=== PATIENT | female | born 1970 | race African-American/Black ===

== ENCOUNTER 2016-11-15 00:43 | Emergency (ER) | payer SELFPAY ==
[~2016-11-15] VITALS: Ht 165.1 cm; Wt 50.0 kg
[2016-11-15 01:32] VITALS: BP 114/81; PULSE 76; RESP 18; TEMP 98; O2SAT 99
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
[2016-11-15] MEDS ORDERED: DICL50TA3 PO (02:49)
[2016-11-15] MEDS ORDERED: IBUPROFEN 600 MG TAB PO ONE (03:00)
== END 2016-11-15 03:02 | disposition home or self-care (01) ==
LOC: NEPB 00:43
DX: S43.401A Unspecified sprain of right shoulder joint, initial encounter (principal); S40.011A Contusion of right shoulder, initial encounter; R06.02 Shortness of breath; Z87.09 Personal history of other diseases of the respiratory system; Y04.2XXA Assault by strike against or bumped into by another person, initial encounter
CPT/HCPCS: 71010; 73030; 99284

== ENCOUNTER 2018-12-08 12:15 | Observation (INO) ==
[2018-12-08] MEDS ORDERED: Ketorolac Inj 30 MG/ML (IVP) Vial IV.PUSH ONE (13:53)
--- NOTE | 2018-12-08 14:02 | ED ---
HPI General Chief complaint: Urogenital-Female Stated complaint: abd complaint Time Seen by Provider: 12/08/18 13:43 Source: patient Mode of arrival: ambulatory Limitations: no limitations History of Present Illness HPI narrative: 48yo F with no significant PMH presents to the ED with c/o abdominal pain since 12/03/18. Said she has lower abdominal pain and increased urinary frequency. Said she was in [facility] so she did not seek any medical attention. Denies any fever, chest pain, sob, n/v, back pain, focal weakness or numbness. Said she cant lift her right leg up by itself because it causes pain in her right lower abdomen. Related Data Previous Rx's Medication Instructions Recorded ferrous sulfate 325 mg PO DAILY #30 tab 12/09/18 Allergies Allergy/AdvReac Type Severity Reaction Status Date / Time No Known Allergies Allergy Verified 12/08/18 12:54 Review of Systems ROS: all other systems reviewed are negative [facility] Medical History Medical History Patient denies medical problems (Acute) Surgical History Surgical History No history of previous surgery (Acute) Family History Family History Father Colon cancer Mother Asthma Social History Social History Substance History: Active Abuse Second Hand Smoke Exposure: No Smoking Status: Never smoker How Often Do You Have a Drink Containing Alcohol: Never Hx Recent Travel: No Recent Travel in [place] within the Last 8 Weeks: No Recent Out of Country Travel within the Last 8 Weeks: No Substance Abuse Detail Crack/Cocaine: Substance Use Status: Active Immunization History Tetanus Immunization: Unsure Exam Narrative Exam Narrative: GENERAL: 48yo F who is cachetic appearing in mild distress. SKIN: Focused skin assessment warm/dry. HEAD: Atraumatic. Normocephalic. EYES: Pupils equal and round. No scleral icterus. No injection or drainage. ENT: No nasal bleeding or discharge. Mucous membranes pink and moist. NECK: Trachea midline. No JVD. CARDIOVASCULAR: Regular rate and rhythm. No murmur appreciated. RESPIRATORY: No accessory muscle use. Clear to auscultation. Breath sounds equal bilaterally. GASTROINTESTINAL: Abdomen softly distended, +TTP LUQ, LLQ. No TTP RLQ but when I lift right leg, right lower quadrant is tender. BACK: No midline ttp thoracic or lumbar spine. MUSCULOSKELETAL: No obvious deformities. No clubbing. No cyanosis. No edema. NEUROLOGICAL: Awake and alert. No obvious cranial nerve deficits. Pt will not lift right leg because of pain in abdomen. Able to move down bilaterally, sensation equal bilaterally. Normal speech. PSYCHIATRIC: Appropriate mood and affect; insight and judgment normal. Course Initial Documented Vital Signs Temperature 98.1 F 12/08/18 12:18 Pulse Rate 88 12/08/18 12:18 Respiratory Rate 18 12/08/18 12:18 Blood Pressure 105/68 12/08/18 12:18 Pulse Oximetry 100 12/08/18 12:18 Last Documented Vital Signs Temperature 98.5 F 12/09/18 11:46 Pulse Rate 66 12/09/18 11:46 Respiratory Rate 16 12/09/18 11:46 Blood Pressure 100/64 12/09/18 11:46 Pulse Oximetry 100 12/09/18 11:46 Medical Decision Making MDM Narrative Medical decision making narrative: 48yo F here with abdominal pain since she was in [facility]. Unable to lift right leg without her arms because it causes pain in right lower abdomen. Denies any focal weakness or numbness or back pain. Will check labs, UA, CT a/p+ and give toradol. Seen at [facility], my PA will review labs, UA, and CT and reevaluate. CBC shows hemoglobin 6.9, hematocrit 23.3. CMP shows no acute abnormality. Lipase is 124. UA is negative. Urine test is negative. CT abdomen/ pelvis shows Multiple masses arising the pelvisI suspect are all large leiomyoma from the uterus. I do not see a normal or abnormal ovary. The rest of the study is unremarkable. Patient reports history of edema, states she has never had a blood transfusion before. She does report heavy vaginal bleeding, states she has not had any since November 27. Rectal exam shows Hemoccult is negative. Type and screen is ordered. Patient will be transfused with 2 units PRBCs. Patient will be admitted for anemia, she agrees to this. Medical Screen Exam Complete: Yes Emergency Medical Condition: Yes Differential Diagnosis Differential Diagnosis: Appendicitis vs. abdominal mass vs. malignancy vs. UTI Lab Data Result diagrams: 12/09/18 06:53 12/08/18 14:30 POC Results POC Urine Results Negative Lab Results 12/08/18 12/08/18 12/08/18 Range/Units 14:25 14:30 15:54 WBC 3.4 L (4.0-11.0) th/mm3 RBC 3.53 L (4.00-5.30) mil/mm3 Hgb 6.9 L* (11.6-15.3) gm/dL Hct 23.3 L (35.0-46.0) % MCV 65.9 L (80.0-100.0) fL MCH 19.5 L (27.0-34.0) pg MCHC 29.5 L (32.0-36.0) % RDW 22.7 H (11.6-17.2) % Plt Count 361 (150-450) th/mm3 MPV 7.6 (7.0-11.0) fL Prelim Diff (Auto) Manual diff required Neut % (Auto) (16.0-70.0) % Lymph % (Auto) (9.0-44.0) % [place] % (Auto) (0.0-8.0) % Eos % (Auto) (0.0-4.0) % Baso % (Auto) (0.0-2.0) % Neut # (Auto) (1.8-7.7) th/mm3 Lymph # (Auto) (1.0-4.8) th/mm3 [place] # (Auto) (0.0-0.9) th/mm3 Eos # (Auto) (0.0-0.4) th/mm3 Baso # (Auto) (0.0-0.2) th/mm3 WBC Differential Manual diff final Diff Scan Seg Neuts % (Manual) 64 (16-70) % Lymphocytes % (Manual) 21 (9-44) % Monocytes % (Manual) 13 H (0-8) % Eosinophils % (Manual) 2 (0-4) % Abs Neuts (Manual) 2.2 (1.8-7.7) th/mm3 Differential Comment . Toxic Vacuolation Present H (None) Platelet Estimate Normal (Normal) Platelet Morphology Enlarged H (Normal) Target Cells 1+ H (None) Tear Drop Cells 1+ H (None) Ovalocytes 1+ H (None) Helmet Cells 1+ H (None) Keratocytes 1+ H (None) Sodium 140 (136-145) meq/L Potassium 4.0 (3.5-5.1) meq/L Chloride 111 H (98-107) meq/L Carbon Dioxide 22.8 (21.0-32.0) meq/L Anion Gap 6 (5-15) meq/L BUN 22 H (7-18) mg/dL Creatinine 0.82 (0.50-1.00) mg/dL Estimated GFR 89 (>89) mL/min Random Glucose 81 (74-106) mg/dL Calcium 9.1 (8.5-10.1) mg/dL Iron (50-170) mcg/dL TIBC (250-450) mcg/dL % Saturation (20-50) % Ferritin (8-252) ng/mL Total Bilirubin 0.4 (0.2-1.0) mg/dL AST 30 (15-37) U/L ALT 23 (10-53) U/L Alkaline Phosphatase 79 (45-117) U/L Total Protein 8.4 H (6.4-8.2) g/dL Albumin 4.1 (3.4-5.0) g/dL Lipase 124 (73-393) U/L Urine Color Yellow (Yellw/Straw) Urine Clarity Hazy H (Clear) Urine pH 5.0 (5.0-8.5) Ur Specific [place] 1.024 (1.002-1.035) Urine Protein Negative (Neg-Trace) mg/dL Urine Glucose (UA) Negative (Negative) mg/dL Urine Ketones Negative (Negative) mg/dL Urine Occult Blood Negative (Negative) Urine Nitrate Negative (Negative) Urine Bilirubin Negative (Negative) Urine Urobilinogen Less than 2 (Less than 2) mg/dL Ur Leukocyte Esterase Negative (Negative) Urine RBC Less than 1 (0-3) /hpf Urine WBC 1 (0-5) /hpf Ur Squamous Epith Cells 5 (0-5) /hpf Urine Mucus Few H (Occasional) /lpf Micro UA Comment Culture not ind Ur Microscopic Review Not Reportable Urine Culture Comments Culture not ind Chlam trachomat DNA PCR (Not Detect) N.gonorrhoeae DNA (PCR) (Not Detect) Blood Type Blood Type Recheck Antibody Screen MTS Gel Crossmatch Bld Prod Order Comment 12/08/18 12/08/18 12/09/18 Range/Units 16:54 23:30 06:53 WBC 4.7 (4.0-11.0) th/mm3 RBC 4.26 (4.00-5.30) mil/mm3 Hgb 9.3 L D (11.6-15.3) gm/dL Hct 30.4 L (35.0-46.0) % MCV 71.4 L D (80.0-100.0) fL MCH 21.8 L (27.0-34.0) pg MCHC 30.5 L (32.0-36.0) % RDW 24.8 H (11.6-17.2) % Plt Count 351 (150-450) th/mm3 MPV 8.7 (7.0-11.0) fL Prelim Diff (Auto) Slide review pending Neut % (Auto) 73.9 H (16.0-70.0) % Lymph % (Auto) 9.7 (9.0-44.0) % [place] % (Auto) 14.0 H (0.0-8.0) % Eos % (Auto) 1.1 (0.0-4.0) % Baso % (Auto) 1.3 (0.0-2.0) % Neut # (Auto) 3.5 (1.8-7.7) th/mm3 Lymph # (Auto) 0.5 L (1.0-4.8) th/mm3 [place] # (Auto) 0.7 (0.0-0.9) th/mm3 Eos # (Auto) 0.1 (0.0-0.4) th/mm3 Baso # (Auto) 0.1 (0.0-0.2) th/mm3 WBC Differential . Diff Scan Auto diff confirmed Seg Neuts % (Manual) (16-70) % Lymphocytes % (Manual) (9-44) % Monocytes % (Manual) (0-8) % Eosinophils % (Manual) (0-4) % Abs Neuts (Manual) (1.8-7.7) th/mm3 Differential Comment . Toxic Vacuolation (None) Platelet Estimate (Normal) Platelet Morphology (Normal) Target Cells (None) Tear Drop Cells (None) Ovalocytes 1+ H (None) Helmet Cells (None) Keratocytes (None) Sodium (136-145) meq/L Potassium (3.5-5.1) meq/L Chloride (98-107) meq/L Carbon Dioxide (21.0-32.0) meq/L Anion Gap (5-15) meq/L BUN (7-18) mg/dL Creatinine (0.50-1.00) mg/dL Estimated GFR (>89) mL/min Random Glucose (74-106) mg/dL Calcium (8.5-10.1) mg/dL Iron (50-170) mcg/dL TIBC (250-450) mcg/dL % Saturation (20-50) % Ferritin (8-252) ng/mL Total Bilirubin (0.2-1.0) mg/dL AST (15-37) U/L ALT (10-53) U/L Alkaline Phosphatase (45-117) U/L Total Protein (6.4-8.2) g/dL Albumin (3.4-5.0) g/dL Lipase (73-393) U/L Urine Color (Yellw/Straw) Urine Clarity (Clear) Urine pH (5.0-8.5) Ur Specific [place] (1.002-1.035) Urine Protein (Neg-Trace) mg/dL Urine Glucose (UA) (Negative) mg/dL Urine Ketones (Negative) mg/dL Urine Occult Blood (Negative) Urine Nitrate (Negative) Urine Bilirubin (Negative) Urine Urobilinogen (Less than 2) mg/dL Ur Leukocyte Esterase (Negative) Urine RBC (0-3) /hpf Urine WBC (0-5) /hpf Ur Squamous Epith Cells (0-5) /hpf Urine Mucus (Occasional) /lpf Micro UA Comment Ur Microscopic Review Urine Culture Comments Chlam trachomat DNA PCR Not detected (Not Detect) N.gonorrhoeae DNA (PCR) Not detected (Not Detect) Blood Type O Positive Blood Type Recheck Required Antibody Screen Negative MTS Gel Crossmatch See Detail Bld Prod Order Comment 12/09/18 Range/Units 06:53 WBC (4.0-11.0) th/mm3 RBC (4.00-5.30) mil/mm3 Hgb (11.6-15.3) gm/dL Hct (35.0-46.0) % MCV (80.0-100.0) fL MCH (27.0-34.0) pg MCHC (32.0-36.0) % RDW (11.6-17.2) % Plt Count (150-450) th/mm3 MPV (7.0-11.0) fL Prelim Diff (Auto) Neut % (Auto) (16.0-70.0) % Lymph % (Auto) (9.0-44.0) % [place] % (Auto) (0.0-8.0) % Eos % (Auto) (0.0-4.0) % Baso % (Auto) (0.0-2.0) % Neut # (Auto) (1.8-7.7) th/mm3 Lymph # (Auto) (1.0-4.8) th/mm3 [place] # (Auto) (0.0-0.9) th/mm3 Eos # (Auto) (0.0-0.4) th/mm3 Baso # (Auto) (0.0-0.2) th/mm3 WBC Differential Diff Scan Seg Neuts % (Manual) (16-70) % Lymphocytes % (Manual) (9-44) % Monocytes % (Manual) (0-8) % Eosinophils % (Manual) (0-4) % Abs Neuts (Manual) (1.8-7.7) th/mm3 Differential Comment Toxic Vacuolation (None) Platelet Estimate (Normal) Platelet Morphology (Normal) Target Cells (None) Tear Drop Cells (None) Ovalocytes (None) Helmet Cells (None) Keratocytes (None) Sodium (136-145) meq/L Potassium (3.5-5.1) meq/L Chloride (98-107) meq/L Carbon Dioxide (21.0-32.0) meq/L Anion Gap (5-15) meq/L BUN (7-18) mg/dL Creatinine (0.50-1.00) mg/dL Estimated GFR (>89) mL/min Random Glucose (74-106) mg/dL Calcium (8.5-10.1) mg/dL Iron 144 (50-170) mcg/dL TIBC 504 H (250-450) mcg/dL % Saturation 28.6 (20-50) % Ferritin 5 L (8-252) ng/mL Total Bilirubin (0.2-1.0) mg/dL AST (15-37) U/L ALT (10-53) U/L Alkaline Phosphatase (45-117) U/L Total Protein (6.4-8.2) g/dL Albumin (3.4-5.0) g/dL Lipase (73-393) U/L Urine Color (Yellw/Straw) Urine Clarity (Clear) Urine pH (5.0-8.5) Ur Specific [place] (1.002-1.035) Urine Protein (Neg-Trace) mg/dL Urine Glucose (UA) (Negative) mg/dL Urine Ketones (Negative) mg/dL Urine Occult Blood (Negative) Urine Nitrate (Negative) Urine Bilirubin (Negative) Urine Urobilinogen (Less than 2) mg/dL Ur Leukocyte Esterase (Negative) Urine RBC (0-3) /hpf Urine WBC (0-5) /hpf Ur Squamous Epith Cells (0-5) /hpf Urine Mucus (Occasional) /lpf Micro UA Comment Ur Microscopic Review Urine Culture Comments Chlam trachomat DNA PCR (Not Detect) N.gonorrhoeae DNA (PCR) (Not Detect) Blood Type Blood Type Recheck Antibody Screen MTS Gel Crossmatch Bld Prod Order Comment Imaging Data Radiologist's impression: Abdomen/Pelvis CT 12/08/18 13:51 CONCLUSION: 1. Multiple masses arising the pelvis I suspect are all large leiomyoma from the uterus. I do not see a normal or abnormal ovary. The rest of the study is unremarkable Pelvis Ultrasound 12/09/18 00:00 CONCLUSION: 1. Enlarged heterogeneous uterus containing multiple leiomyomas. 2. Pelvic pain. Correspond with endometrial leiomyoma measuring 3.2 x 1.7 x 1.5 cm. 3. Small moderate pelvic free fluid. Discharge Plan Discharge Disposition Patient Disposition: ED Admit(ED Internal Use Only) Discharge Condition Condition: Stable Discharge Order Discharge Orders: Discharge Order (Routine); Ordered 12/09/18 Ordered By: Ashley Frey ED Use Only Admit Order (Routine); Ordered 12/08/18 Ordered By: Jacque Higuera Discharge Details Anticipated Discharge Date: 12/09/18 Diagnosis: Anemia, Uterine leiomyoma Physicians Team ED Provider: Luz Cross ED Midlevel Provider: Jacque Higuera Primary Care Provider: Primary Care Kale,Lisa Attending Provider: Jono Feldman Other Providers: Leyda Dumont Status ED Status: Left Department Discharge Information Discharge Date/Time: 12/08/18 21:19
[2018-12-08 14:51] LABS: Bilirubin,Urine Negative (Negative); Clarity,Urine Hazy (Clear); Color,Urine Yellow (Yellw/Straw); Glucose,Urine (UA) Negative (Negative); Leukocyte Esterase,Urine Negative (Negative); Mucus,Urine Few /lpf (Occasional); Nitrite,Urine Negative (Negative); Specific Gravity,Urine 1.024 (1.002-1.035); Squamous Epithelial Cell,Urine 5 /hpf (0-5)
[2018-12-08 15:15] LABS: Alanine Aminotransferase 23 U/L (10-53); Albumin 4.1 g/dL (3.4-5.0); Anion Gap 6 meq/L (5-15); Aspartate Aminotransferase 30 U/L (15-37); Blood Urea Nitrogen 22 mg/dL (7-18); Calcium 9.1 mg/dL (8.5-10.1); Carbon Dioxide 22.8 meq/L (21.0-32.0); Chloride 111 meq/L (98-107); Glomerular Filtration Rate 89 mL/min (>89); Glucose,Random 81 mg/dL (74-106); Lipase 124 U/L (73-393); Sodium 140 meq/L (136-145)
[2018-12-08 15:17] LABS: Alkaline Phosphatase 79 U/L (45-117); Total Protein 8.4 g/dL (6.4-8.2)
--- NOTE | 2018-12-08 15:54 | CT ---
EXAM DATE: 12/08/2018 3:45 PM EST AGE/SEX: 48 years / Female INDICATIONS: Lower abdomen pain and painful urination. CLINICAL DATA: This is the patient's initial encounter. Patient reports that signs and symptoms have been present for 1 day and indicates a pain score of 6/10. MEDICAL/SURGICAL HISTORY: None. None. ORAL CONTRAST: No oral contrast ingested. RADIATION DOSE: 6.64 CTDI (mGy) COMPARISON: No prior exams available for comparison. TECHNIQUE: Multiple contiguous axial images were obtained through the abdomen and pelvis following b olus infusion of 75 ml Omnipaque 350 (iohexol) nonionic water-soluble contrast as a single exam dos e. No oral contrast ingested. Using automated exposure control and adjustment of the mA and/or kV ac cording to patient size, radiation dose was kept as low as reasonably achievable to obtain optimal di agnostic quality images. DICOM format image data is available electronically for review and comparis on. FINDINGS: Lower Lungs: The visualized lower lungs are clear. Liver: The liver has a homogeneous density without space-occupying lesion. There is no dilation of th e biliary tree. Spleen: Homogeneous density without enlargement. Pancreas: Unremarkable without mass or calcification. Kidneys: Normal in size and shape. No evidence of mass or hydronephrosis. Adrenal Glands: Unremarkable. Aorta: The aorta and proximal iliac vessels are grossly unremarkable without aneurysmal dilation. Bowel/Mesentery: The bowel loops are grossly unremarkable. The cecum and sigmoid colon have a normal configuration. The appendix cannot be identified Abdominal Wall: Intact. Retroperitoneum: No evidence of adenopathy in the retrocrural, para-aortic, or deep pelvic regions. Bladder: Contours are smooth. Reproductive Organs: There is a large multilobulated mass arising from the pelvis I suspect an enlar ged uterus. On the sagittal images the uterus measures at least 14.5 cm in cephalocaudad height. Supe rior and to the right side of uterus is a large 6.9 x 8.7 cm heterogeneous mass also suspect a leiomy migdalia. Inferiorly on the right side of the pelvis there is a 5.9 x 7.1 cm similar-appearing mass also l ikely leiomyoma. There is a markedly enhancing mass on the right side of the uterus with surrounding fluid are suspected a intraluminal leiomyoma measuring 3.5 x 2.4 cm across. There are number of other masses in the left side of the uterus. I don't clearly identify the ovaries. Inguinal: The inguinal region is unremarkable without evidence of adenopathy. Bony Structures: Unremarkable. CONCLUSION: 1. Multiple masses arising the pelvis I suspect are all large leiomyoma from the uterus. I do not se e a normal or abnormal ovary. The rest of the study is unremarkable Electronically signed by: Dustin Boyd MD Board Certified Radiologist 12/08/2018 3:52 PM EST
[2018-12-08 16:30] LABS: Hematocrit 23.3 % (35.0-46.0); Mean Corpuscular Hemoglobin 19.5 pg (27.0-34.0); Mean Corpuscular Volume 65.9 fL (80.0-100.0); Mean Platelet Volume 7.6 fL (7.0-11.0); Platelet Count 361 th/mm3 (150-450); Red Blood Count 3.53 mil/mm3 (4.00-5.30); Red Cell Distribution Width 22.7 % (11.6-17.2); White Blood Count 3.4 th/mm3 (4.0-11.0)
[2018-12-08 16:33] LABS: Mean Corpuscular HGB Conc 29.5 % (32.0-36.0)
[2018-12-08 16:44] LABS: Hemoglobin 6.9 gm/dL (11.6-15.3)
[2018-12-08 17:07] LABS: Eosinophils 2 % (0-4); Lymphocytes 21 % (9-44); Monocytes 13 % (0-8)
[2018-12-08 17:10] LABS: Platelet Estimate Normal (Normal); Toxic Vacuolation Present
[2018-12-08 17:11] LABS: Target Cells 1+
[2018-12-08 17:12] LABS: Helmet Cells 1+; Ovalocytes 1+; Tear Drop Cells 1+
[2018-12-08] MEDS ORDERED: Sod Chloride 0.9% Inj 1,000 ML IV.SIG ONE (17:20)
[2018-12-08] MEDS ORDERED: Acetaminophen 325 MG Tablet PO PRN (18:16)
[2018-12-08] MEDS ORDERED: Bisacodyl 10 MG Supp RECTAL PRN (18:16)
--- NOTE | 2018-12-08 20:56 | P.HPIM ---
History of Present Illness Service: [facility] Primary Care Physician: No Primary Care Physician Chief Complaint: abdominal pain History of Present Illness: 48 y/o female with no medical history presented to the abdominal pain and right leg weakness. Patient states she has had abdominal pain for months sharp stabbing pain, constant, 10/10, worse with walking, rest makes it better, radiates down right leg with associated nausea and abdominal distention. She states the right leg pain has became worse over the last few weeks and she states the pain makes it difficult to walk and is unable to lift her leg without assistance. Upon admission she was found to have a low hemoglobin, she states she has very heavy menstrual cycles. Her last cycle was Nov 20. She denies any chest pain, sob, fever or chills. Review of Systems Review of Systems: all other systems reviewed are negative [facility] Medical History Medical History Patient denies medical problems (Acute) Surgical History Surgical History No history of previous surgery (Acute) Family History Family History Father Colon cancer Mother Asthma Social History Social History Substance History: Active Abuse Second Hand Smoke Exposure: No Smoking Status: Never smoker How Often Do You Have a Drink Containing Alcohol: Never Hx Recent Travel: No Recent Travel in [facility] within the Last 8 Weeks: No Recent Out of Country Travel within the Last 8 Weeks: No Substance Abuse Detail Crack/Cocaine: Substance Use Status: Active Immunization History Tetanus Immunization: Unsure Medications and Allergies Allergies Allergy/AdvReac Type Severity Reaction Status Date / Time No Known Allergies Allergy Verified 12/08/18 12:54 Home Medications Medication Instructions Recorded Confirmed Type No Known Home Medications 12/08/18 12/08/18 History Active Medications: Active Medications Acetaminophen (Tylenol) 650 mg PO Q4H PRN PRN Reason: Temp > 100.4 Al Hydroxide/Mg Hydroxide (Milk Of Magnesia Liq) 30 ml PO Q12H PRN PRN Reason: Mild Constipation Bisacodyl (Dulcolax Supp) 10 mg RECTAL DAILY PRN PRN Reason: SEVERE CONSITIPATION Lactulose (Lactulose Liq) 30 ml PO DAILY PRN PRN Reason: SEVERE CONSITIPATION Ondansetron HCl (Zofran Inj) 4 mg IV.PUSH Q6H PRN PRN Reason: NAUSEA OR VOMITING Senna/Docusate Sodium (Sophia-Colace) 1 tab PO BID PAULA Sennosides (Senokot) 17.2 mg PO Q12H PRN PRN Reason: Moderate Constipation Sodium Chloride (Ns Flush) 2 ml IV.FLUSH BID PAULA Sodium Chloride (Ns Flush) 2 ml IV.FLUSH PRN PRN PRN Reason: FLUSH AFTER USING IV ACCESS Physical Exam Vital signs: Vital Signs 12/08/18 12:18 12/08/18 17:26 Temperature 98.1 F Pulse Rate 88 75 Respiratory Rate 18 18 Blood Pressure 105/68 100/75 Pulse Oximetry 100 100 Intake & Output 12/08/18 12/08/18 12/09/18 06:59 18:59 06:59 Intake Total 1000 / 1000 Balance 1000 / 1000 Weight 54.431 kg 54.431 kg Intake: IV 1000 / 1000 NS Inj 1,000 ML @ Wide Open IV. 1000 / 1000 SIG BOLUS ONE Rx#:[id number] Other: Weight On Admission 54.431 kg Narrative: GENERAL: well nourished patient in no distress SKIN: Warm and dry. No open lesions or abrasions EYES: No scleral icterus. No injection or drainage. NECK: Supple, trachea midline. No JVD. CARDIOVASCULAR: Regular rate and rhythm without murmurs, gallops, or rubs. RESPIRATORY: Breath sounds equal bilaterally. No accessory muscle use. No rhonchi or crackles. GASTROINTESTINAL: Abdomen tight, RLQ and transverse pelvic tenderness, distended. MUSCULOSKELETAL: No cyanosis, or edema. RLE limited ROM due to pain, unable to lift without assistance. LLE normal ROM, no pain. Neurological: Alert and oriented x3, Follows commands Results Labs CBC & Chem 7: 12/08/18 15:54 12/08/18 14:30 Imaging Impressions Abdomen/Pelvis CT 12/08/18 13:51 CONCLUSION: 1. Multiple masses arising the pelvis I suspect are all large leiomyoma from the uterus. I do not see a normal or abnormal ovary. The rest of the study is unremarkable Caprini VTE Risk Assessment Caprini VTE Risk Assessment: No/Low Risk (score <= 1) Caprini Risk Assessment Model: Point Value = 1 Point Value = 2 Point Value = 3 Point Value = 5 Age 41-60 Minor surgery BMI > 25 kg/m2 Swollen legs Varicose veins or History of unexplained or recurrent spontaneous Oral contraceptives or hormone replacement Sepsis (< 1 month) Serious lung disease, including pneumonia (< 1 month) Abnormal pulmonary function Acute myocardial infarction Congestive heart failure (< 1 month) History of inflammatory bowel disease Medical patient at bed rest Age 61-74 Arthroscopic surgery Major open surgery (> 45 min) Laparoscopic surgery (> 45 min) Malignancy Confined to bed (> 72 hours) Immobilizing plaster cast Central venous access Age >= 75 History of VTE Family history of VTE Factor V Leiden Prothrombin [id number] Lupus anticoagulant Anticardiolipin antibodies Elevated serum homocysteine Heparin-induced thrombocytopenia Other congenital or acquired thrombophilia Stroke (< 1 month) Elective arthroplasty Hip, pelvis, or leg fracture Acute spinal cord injury (< 1 month) Prophylaxis Regimen: Total Risk Factor Score Risk Level Prophylaxis Regimen 0-1 Low Early ambulation 2 Moderate Order ONE of the following: *Sequential Compression Device (SCD) *Heparin 5000 units SQ BID 3-4 Higher Order ONE of the following medications: *Heparin 5000 units SQ TID *Enoxaparin/Lovenox 40 mg SQ daily (WT < 150 kg, CrCl > 30 mL/min) *Enoxaparin/Lovenox 30 mg SQ daily (WT < 150 kg, CrCl > 10-29 mL/min) *Enoxaparin/Lovenox 30 mg SQ BID (WT < 150 kg, CrCl > 30 mL/min) AND/OR *Sequential Compression Device (SCD) 5 or more Highest Order ONE of the following medications: *Heparin 5000 units SQ TID (Preferred with Epidurals) *Enoxaparin/Lovenox 40 mg SQ daily (WT < 150 kg, CrCl > 30 mL/min) *Enoxaparin/Lovenox 30 mg SQ daily (WT < 150 kg, CrCl > 10-29 mL/min) *Enoxaparin/Lovenox 30 mg SQ BID (WT < 150 kg, CrCl > 30 mL/min) AND *Sequential Compression Device (SCD) Assessment and Plan Plan 48 y/o female with no medical history presented to the abdominal pain and right leg weakness. Uterine mass with abdominal pain, leiomyoma vs cancer Abdominal CT reviewed and shows multiple masses arising the pelvis, multiple sizes -Consult to RESIDENTIAL LIVING ASSISTANT for evaluation -Pain management with PO norco Anemia, due to heavy menstrual cycles Hgb 6.9 -Transfuse 2 units PRBCs -Labs in AM -Iron profile and ferritin level ordered DVT prophylaxis: SCDs H&P: Quality VTE Deep Vein Thrombosis/Pulmonary Embolism Present on Admission: No
[2018-12-08] MEDS: Senna/Docusate Sodium 8.6/50 MG Tablet PO SCH (21:13)
[2018-12-08] MEDS ORDERED: metroNIDAZOLE 500 MG Tablet PO STA (22:43)
[2018-12-08] MEDS ORDERED: Azithromycin 250 MG Tablet PO STA (22:43)
--- NOTE | 2018-12-08 23:55 | P.CONOB ---
History of Present Illness Consult date: 12/08/18 Requesting Physician: Mayra Asif Reason for Consult: Uterine mass causing pain Primary Care Physician: No Primary Care Physician Chief Complaint: My belly is swollen and my leg hurts History of Present Illness: 48-year-old with irregular menses presents to the ED complaining of increasing abdominal girth which radiates to her right leg reports difficult to lift secondary to pain. Patient reports that she was recently incarcerated and that she has had a history of an enlarged abdomen for which her mother given her "kidney pills" suspect probably diuretics and that she did notice some descent of the abdominal size but then subsequently when she was unable to get access to these pills her abdomen increased in size again. She reports that she has had an increased abdomen since her delivery 29 years ago. Recently sexually active as of yesterday. 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 She has a significant REPLENISHMENT MERCHANDISING ASSOCIATE history for syphilis crabs and herpes. She reports that she bled heavy after every delivery but never sought medical attention. She also reports that she has pain with intercourse which is frequent and medical history possibly significant for asthma but patient is unsure. Reports that she is and does not drink first participate with tobacco but she does use crack cocaine. Reports that her periods are heavy lasting for 7-8 days she does not recall when she had been menopausal. History of delivery x1. CT performed demonstrates large pelvic masses possible fibroids but no documentation of the ovaries noted. Patient reports currently she is not bleeding. Past OB history delivery x1 x2 Past REPLENISHMENT MERCHANDISING ASSOCIATE history significant for syphilis/pediculosis pubis / chlamydia /herpes patient denies HIV Past medical history syphilis/herpes/asthma per patient Past surgical history Review of Systems Constitutional: Denies body ache(s), Denies chills Eyes: Denies blind spots Cardiovascular: Reports shortness of breath with activity, Denies chest pain, Denies chest pain with activity, Denies fast heart rate, Denies foot swelling Gastrointestinal: Reports abdominal pain, Denies feeling full early Genitourinary: Reports abnormal periods, Reports abnormal vaginal bleeding, Reports dribbling after urination, Reports painful intercourse, Reports pelvic pain, Reports urinary incontinence, Denies genital lesions Musculoskeletal: Reports radiating pain into limb Skin/Breast: Denies acne Neurologic: Denies abnormal hearing Psychiatric: Denies behavioral changes, Denies confusion Endocrine: Denies cold intolerance Hematologic/Lymphatic: Denies easy bleeding PMFSH - History History Provided By: Patient - Medical History Medical History: Medical History (Last Updated 12/08/18 @ 12:54 by Gisela Perez) Patient denies medical problems - Surgical History Surgical History: Surgical History (Last Updated 12/08/18 @ 12:54 by Gisela Perez) No history of previous surgery - Family History Family History: Family History Father Colon cancer Mother Asthma - Tobacco History Second Hand Smoke Exposure: No Smoking Status: Never smoker - Alcohol History How Often Do You Have a Drink Containing Alcohol: Never - Substance Use History Substance History: Active Abuse - Substance Use Type Crack/Cocaine Status: Active - Travel History History of Recent Travel: No Recent Travel in the [place] Within the Last 8 Weeks: No Recent Travel Out of the Country Within the Last 8 Weeks: No - Immunization History Tetanus Immunization: Unsure Medications and Allergies Active Medications: Active Medications Acetaminophen (Tylenol) 650 mg PO Q4H PRN PRN Reason: Temp > 100.4 Hydrocodone Bitart/Acetaminophen ([place] 5/325) 1 tab PO Q4H PRN PRN Reason: pain 1 to 10 Al Hydroxide/Mg Hydroxide (Milk Of Magnesia Liq) 30 ml PO Q12H PRN PRN Reason: Mild Constipation Bisacodyl (Dulcolax Supp) 10 mg RECTAL DAILY PRN PRN Reason: SEVERE CONSITIPATION Lactulose (Lactulose Liq) 30 ml PO DAILY PRN PRN Reason: SEVERE CONSITIPATION Ondansetron HCl (Zofran Inj) 4 mg IV.PUSH Q6H PRN PRN Reason: NAUSEA OR VOMITING Senna/Docusate Sodium (Sophia-Colace) 1 tab PO BID [facility] Last Admin: 12/08/18 21:13 Dose: Not Given Sennosides (Senokot) 17.2 mg PO Q12H PRN PRN Reason: Moderate Constipation Sodium Chloride (Ns Flush) 2 ml IV.FLUSH BID [facility] Last Admin: 12/08/18 21:13 Dose: Not Given Sodium Chloride (Ns Flush) 2 ml IV.FLUSH PRN PRN PRN Reason: FLUSH AFTER USING IV ACCESS Allergies Allergy/AdvReac Type Severity Reaction Status Date / Time No Known Allergies Allergy Verified 12/08/18 12:54 Home Medications Medication Instructions Recorded Confirmed Type No Known Home Medications 12/08/18 12/08/18 History Exam Vital signs: Vital Signs 12/08/18 12:18 12/08/18 17:26 12/08/18 21:02 Temperature 98.1 F 96.7 F L Pulse Rate 88 75 79 Respiratory Rate 18 18 18 Blood Pressure 105/68 100/75 105/73 Pulse Oximetry 100 100 100 12/08/18 21:25 12/08/18 23:13 Temperature 96.8 F L 98.2 F Pulse Rate 83 78 Respiratory Rate 18 14 Blood Pressure 102/67 97/64 L Pulse Oximetry 100 99 Intake & Output 12/08/18 12/08/18 12/09/18 06:59 18:59 06:59 Intake Total 1000 / 1000 0 / 0 Balance 1000 / 1000 0 / 0 Weight 54.431 kg 54.431 kg Intake: IV 1000 / 1000 NS Inj 1,000 ML @ Wide Open IV. 1000 / 1000 SIG BOLUS ONE Rx#:[id number] Intake (Blood Product) Amt 0 / 0 Rbc As-3 Leukoreduced Unit 0 / 0 [id number] Other: Weight On Admission 54.431 kg - Constitutional no acute distress, thin, cachectic, disheveled - Routine HEENT Exam Head: Present: normocephalic ENT: Present: mucous membranes dry - Routine Neck Exam Present: supple - Routine Chest/Breast/Axilla Exam Chest wall: Absent: tenderness - Routine Respiratory Exam Absent: accessory muscle use - Routine Abdominal Exam Present: soft, distended, mass, surgical scars (Midline scar). Absent: firm, rigid - Routine Exam Comments: Pelvic exam copious amount of malodorous white milky discharge noted florid Uterus palpates to the level of the umbilicus irregular masses in the cul-de- sac out to the pelvic sidewall but freely mobile Cannot appreciate the adnexa secondary to the uterine volume difficult to assess the ovaries - Routine Extremities Exam Present: clubbing (Nailbed). Absent: cyanosis, normal capillary refill (Poor capillary refill), calf tenderness, joint swelling - Routine Skin Exam Present: pallor - Routine Neurological Exam Present: alert, oriented X3 Results - Labs CBC & Chem 7: 12/08/18 15:54 12/08/18 14:30 Labs: Laboratory Results - last 24 hr 12/08/18 12/08/18 12/08/18 14:25 14:30 15:54 WBC 3.4 L RBC 3.53 L Hgb 6.9 L* Hct 23.3 L MCV 65.9 L MCH 19.5 L MCHC 29.5 L RDW 22.7 H Plt Count 361 MPV 7.6 Prelim Diff (Auto) Manual diff required WBC Differential Manual diff final Seg Neuts % (Manual) 64 Lymphocytes % (Manual) 21 Monocytes % (Manual) 13 H Eosinophils % (Manual) 2 Abs Neuts (Manual) 2.2 Differential Comment . Toxic Vacuolation Present H Platelet Estimate Normal Platelet Morphology Enlarged H Target Cells 1+ H Tear Drop Cells 1+ H Ovalocytes 1+ H Helmet Cells 1+ H Keratocytes 1+ H Sodium 140 Potassium 4.0 Chloride 111 H Carbon Dioxide 22.8 Anion Gap 6 BUN 22 H Creatinine 0.82 Estimated GFR 89 Random Glucose 81 Calcium 9.1 Total Bilirubin 0.4 AST 30 ALT 23 Alkaline Phosphatase 79 Total Protein 8.4 H Albumin 4.1 Lipase 124 Urine Color Yellow Urine Clarity Hazy H Urine pH 5.0 Ur Specific [place] 1.024 Urine Protein Negative Urine Glucose (UA) Negative Urine Ketones Negative Urine Occult Blood Negative Urine Nitrate Negative Urine Bilirubin Negative Urine Urobilinogen Less than 2 Ur Leukocyte Esterase Negative Urine RBC Less than 1 Urine WBC 1 Ur Squamous Epith Cells 5 Urine Mucus Few H Micro UA Comment Culture not ind Ur Microscopic Review Not Reportable Urine Culture Comments Culture not ind Blood Type Blood Type Recheck Antibody Screen MTS Gel Crossmatch Bld Prod Order Comment 12/08/18 16:54 WBC RBC Hgb Hct MCV MCH MCHC RDW Plt Count MPV Prelim Diff (Auto) WBC Differential Seg Neuts % (Manual) Lymphocytes % (Manual) Monocytes % (Manual) Eosinophils % (Manual) Abs Neuts (Manual) Differential Comment Toxic Vacuolation Platelet Estimate Platelet Morphology Target Cells Tear Drop Cells Ovalocytes Helmet Cells Keratocytes Sodium Potassium Chloride Carbon Dioxide Anion Gap BUN Creatinine Estimated GFR Random Glucose Calcium Total Bilirubin AST ALT Alkaline Phosphatase Total Protein Albumin Lipase Urine Color Urine Clarity Urine pH Ur Specific [place] Urine Protein Urine Glucose (UA) Urine Ketones Urine Occult Blood Urine Nitrate Urine Bilirubin Urine Urobilinogen Ur Leukocyte Esterase Urine RBC Urine WBC Ur Squamous Epith Cells Urine Mucus Micro UA Comment Ur Microscopic Review Urine Culture Comments Blood Type O Positive Blood Type Recheck Required Antibody Screen Negative MTS Gel Crossmatch See Detail Bld Prod Order Comment - Imaging Impressions Abdomen/Pelvis CT 12/08/18 13:51 CONCLUSION: 1. Multiple masses arising the pelvis I suspect are all large leiomyoma from the uterus. I do not see a normal or abnormal ovary. The rest of the study is unremarkable Assessment and Plan - Diagnosis (1) Pelvic mass in female Code(s): R19.00 - Intra-abdominal and pelvic swelling, mass and lump, unspecified site Status: Acute (2) Anemia Code(s): D64.9 - Anemia, unspecified Status: Acute (3) Vaginitis Code(s): N76.0 - Acute vaginitis Status: Acute (4) History of sexually transmitted disease Code(s): Z86.19 - Personal history of other infectious and parasitic diseases Status: Acute - Plan At this time strongly suspect an STI is present based on patient's history/ history of multiple STI's/recent coitus Ordered GC chlamydia wet prep-we will treat empirically with Rocephin/ azithromycin/Flagyl In regards to the pelvic mass cannot discern whether or not this is primarily leiomyoma versus an ovarian mass Pelvic ultrasound ordered Patient currently does not have insurance-discussed with patient will affect at least 1 visit on an outpatient basis with a provider which she may follow-up when she is discharged after her blood transfusion (2) Anemia Qualifiers: Anemia type: unspecified type Qualified Code(s): D64.9 - Anemia, unspecified
--- NOTE | 2018-12-09 02:15 | US ---
EXAM DATE: 12/09/2018 1:39 AM EST AGE/SEX: 48 years / Female INDICATIONS: Pelvic pain. CLINICAL DATA: This is the patient's initial encounter. Patient reports that signs and symptoms have been present for 4 - 6 days and indicates a pain score of 10/10. MEDICAL/SURGICAL HISTORY: Anemia. Fibroids. Menorrhagia. section. Tubal ligation. COMPARISON: [facility] – [place], CT ABDOMEN & PELVIS W CONTRAST, 12/08/2018. . MEASUREMENTS: Uterus:__14.7 x 9.3 x 8.7 cm Endometrial Stripe:__16 mm Right Ovary:__ 4.7 x 2.2 x 1.9 cm Left Ovary:__ 3.8 x 2.2 x 2.3 cm FINDINGS: Uterus: Heterogeneous uterus containing multiple hypoechoic lesions presumed to be leiomyomas. Hypoe choic/isoechoic lesion in the region of the endometrium measures 3.2 x 1.7 x 1.5 cm and may be the so urce of pain. One is seen in the left fundal region measuring 2.6 x 3.1 x 2.2 cm. Many other leiomyom as are seen. Endometrial Stripe: FINDINGS Right Ovary: Ovary contains no mass. Follicles are present. Normal flow. Left Ovary: Ovary contains no mass. Follicles are present. Normal flow. Fluid: Mild to moderate simple free fluid. Other: None. CONCLUSION: 1. Enlarged heterogeneous uterus containing multiple leiomyomas. 2. Pelvic pain. Correspond with endometrial leiomyoma measuring 3.2 x 1.7 x 1.5 cm. 3. Small moderate pelvic free fluid. Electronically signed by: Mahin Dale MD Board Certified Radiologist 12/09/2018 2:14 AM EST
[2018-12-09 07:26] LABS: Baso # (Auto) 0.1 th/mm3 (0.0-0.2); Baso % (Auto) 1.3 % (0.0-2.0); Eos # (Auto) 0.1 th/mm3 (0.0-0.4); Eos % (Auto) 1.1 % (0.0-4.0); Hematocrit 30.4 % (35.0-46.0); Hemoglobin 9.3 gm/dL (11.6-15.3); Lymph # (Auto) 0.5 th/mm3 (1.0-4.8); Lymph % (Auto) 9.7 % (9.0-44.0); Mean Corpuscular Hemoglobin 21.8 pg (27.0-34.0); Mean Corpuscular Volume 71.4 fL (80.0-100.0); Mean Platelet Volume 8.7 fL (7.0-11.0); Mono # (Auto) 0.7 th/mm3 (0.0-0.9); Neut # (Auto) 3.5 th/mm3 (1.8-7.7); Neut % (Auto) 73.9 % (16.0-70.0); Platelet Count 351 th/mm3 (150-450); Red Blood Count 4.26 mil/mm3 (4.00-5.30); Red Cell Distribution Width 24.8 % (11.6-17.2); White Blood Count 4.7 th/mm3 (4.0-11.0)
[2018-12-09 07:31] LABS: Mean Corpuscular HGB Conc 30.5 % (32.0-36.0)
[2018-12-09 07:43] LABS: % Iron Saturation 28.6 % (20-50)
[2018-12-09 08:12] VITALS: RESP 16; O2SAT 100
[2018-12-09] MEDS: Senna/Docusate Sodium 8.6/50 MG Tablet PO SCH (08:21)
[2018-12-09 08:32] LABS: Ovalocytes 1+
--- NOTE | 2018-12-09 10:18 | P.DS ---
DS: Providers Date of admission: 12/08/18 18:09 Primary care physician: No Primary Care Physician Consults: 12/08/18 21:51 Consult to Gynecology Routine Consulting Provider: Leyda Dumont Reason for Consultation: uterine mass causing pain Notified:: Physician Spoke with:: Dr. Dumont Date Notified:: 12/08/18 Time Notified:: 22:01 Ordering Provider: RAMESH Brief History from admission: 48-year-old with irregular menses presents to the ED complaining of increasing abdominal girth which radiates to her right leg reports difficult to lift secondary to pain. Patient reports that she was recently incarcerated and that she has had a history of an enlarged abdomen for which her mother given her "kidney pills" suspect probably diuretics and that she did notice some descent of the abdominal size but then subsequently when she was unable to get access to these pills her abdomen increased in size again. She reports that she has had an increased abdomen since her delivery 29 years ago. Recently sexually active as of yesterday. 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 She has a significant PLACEMENT INTERVIEWER history for syphilis crabs and herpes. She reports that she bled heavy after every delivery but never sought medical attention. She also reports that she has pain with intercourse which is frequent and medical history possibly significant for asthma but patient is unsure. Reports that she is and does not drink first participate with tobacco but she does use crack cocaine. Reports that her periods are heavy lasting for 7-8 days she does not recall when she had been menopausal. History of delivery x1. CT performed demonstrates large pelvic masses possible fibroids but no documentation of the ovaries noted. Patient reports currently she is not bleeding. Past OB history delivery x1 x2 Past PLACEMENT INTERVIEWER history significant for syphilis/pediculosis pubis / chlamydia /herpes patient denies HIV Past medical history syphilis/herpes/asthma per patient Past surgical history Patient update on day of discharge: Follow-up visit abdominal pain, anemia. Patient seen and examined today. Reports she is doing a lot better. Denies any abdominal pain. Discussed with patient labs and results of diagnostic. Verbalized understanding. Denies pain and discomfort. Denies SOB/ dyspnea. Denies chest pain, palpitations, headaches, dizziness. Denies fevers, chills, n/ v/d. Denies hematuria, dysuria. DS: Diagnosis Discharge Diagnosis (1) Pelvic mass in female: Status: Acute (2) Anemia: Status: Acute (3) Vaginitis: Status: Acute (4) History of sexually transmitted disease: Status: Acute DS: Summary Patient is a 48-year-old female with past medical history of heavy menstrual bleeding, no other medical history came into the hospital for complaints of abdominal pain and right leg weakness. Abdominal CT showed multiple masses arising from the pelvis, multiple slices, suspicion for leiomyoma vs cancer. PLACEMENT INTERVIEWER consult for evaluation done. Gonorrhea and Chlamydia cultures were negative. Ultrasound performed with multiple myomas noted -endometrial stripe is 1.61 cm enlarged and heterogeneous in appearance. Bilateral adnexa although dictated within normal limits Dopplers are unremarkable bilateral infundibulopelvic are quite dilated could be mass-effect, free fluid is noted in the cul-de-sac. Cleared by PLACEMENT INTERVIEWER to follow-up in your office in the outpatient setting. Patient also found to have microcytic anemia with hemoglobin at 6.9. She was transfused 2 units packed RBCs repeat H&H 9.3/.4. Iron profile/ferritin has been evaluated. Patient noted to have iron deficiency anemia. Start iron supplements. Follow-up with PCP. Patient is [facility] to [facility]. Time Spent with Patient Total time spent providing and/or coordinating discharge services: >30 minutes Quality: VTE Deep Vein Thrombosis/Pulmonary Embolism Present on Admission: No Exam Narrative Exam Narrative: GENERAL: This is a thin appearing -[place] female patient, well-developed, in no apparent distress. SKIN: Warm and dry. HEENT: Normocephalic. Pupils equal round and reactive. Nose without bleeding. Airway patent. NECK: Trachea midline. No JVD. Supple. CARDIOVASCULAR: Regular rate and rhythm without murmurs, gallops, or rubs. RESPIRATORY: Clear to auscultation. Breath sounds equal bilaterally. No wheezes , rales, or rhonchi. GASTROINTESTINAL: Abdomen soft, non-tender, nondistended. Bowel Sounds normoactive x4. MUSCULOSKELETAL: Extremities without clubbing, cyanosis, or edema. NEUROLOGICAL: Awake and alert.No focal neuro deficit. Moves all extremities. Normal speech. Results Labs on day of discharge: Labs from last 24 hours 12/09/18 12/09/1819 06:53 06:53 23:30 WBC 4.7 RBC 4.26 Hgb 9.3 L D Hct 30.4 L MCV 71.4 L D MCH 21.8 L MCHC 30.5 L RDW 24.8 H Plt Count 351 MPV 8.7 Prelim Diff (Auto) Slide review pending Neut % (Auto) 73.9 H Lymph % (Auto) 9.7 [place] % (Auto) 14.0 H Eos % (Auto) 1.1 Baso % (Auto) 1.3 Neut # (Auto) 3.5 Lymph # (Auto) 0.5 L [place] # (Auto) 0.7 Eos # (Auto) 0.1 Baso # (Auto) 0.1 WBC Differential . Diff Scan Auto diff confirmed Seg Neuts % (Manual) Lymphocytes % (Manual) Monocytes % (Manual) Eosinophils % (Manual) Abs Neuts (Manual) Differential Comment . Toxic Vacuolation Platelet Estimate Platelet Morphology Target Cells Tear Drop Cells Ovalocytes 1+ H Helmet Cells Keratocytes Sodium Potassium Chloride Carbon Dioxide Anion Gap BUN Creatinine Estimated GFR Random Glucose Calcium Iron 144 TIBC 504 H % Saturation 28.6 Ferritin 5 L Total Bilirubin AST ALT Alkaline Phosphatase Total Protein Albumin Lipase Urine Color Urine Clarity Urine pH Ur Specific [place] Urine Protein Urine Glucose (UA) Urine Ketones Urine Occult Blood Urine Nitrate Urine Bilirubin Urine Urobilinogen Ur Leukocyte Esterase Urine RBC Urine WBC Ur Squamous Epith Cells Urine Mucus Micro UA Comment Ur Microscopic Review Urine Culture Comments Chlam trachomat DNA PCR Not detected N.gonorrhoeae DNA (PCR) Not detected Blood Type Blood Type Recheck Antibody Screen MTS Gel Crossmatch Bld Prod Order Comment 12/08/18 12/08/18 12/08/18 16:54 15:54 14:30 WBC 3.4 L RBC 3.53 L Hgb 6.9 L* Hct 23.3 L MCV 65.9 L MCH 19.5 L MCHC 29.5 L RDW 22.7 H Plt Count 361 MPV 7.6 Prelim Diff (Auto) Manual diff required Neut % (Auto) Lymph % (Auto) [place] % (Auto) Eos % (Auto) Baso % (Auto) Neut # (Auto) Lymph # (Auto) [place] # (Auto) Eos # (Auto) Baso # (Auto) WBC Differential Manual diff final Diff Scan Seg Neuts % (Manual) 64 Lymphocytes % (Manual) 21 Monocytes % (Manual) 13 H Eosinophils % (Manual) 2 Abs Neuts (Manual) 2.2 Differential Comment . Toxic Vacuolation Present H Platelet Estimate Normal Platelet Morphology Enlarged H Target Cells 1+ H Tear Drop Cells 1+ H Ovalocytes 1+ H Helmet Cells 1+ H Keratocytes 1+ H Sodium 140 Potassium 4.0 Chloride 111 H Carbon Dioxide 22.8 Anion Gap 6 BUN 22 H Creatinine 0.82 Estimated GFR 89 Random Glucose 81 Calcium 9.1 Iron TIBC % Saturation Ferritin Total Bilirubin 0.4 AST 30 ALT 23 Alkaline Phosphatase 79 Total Protein 8.4 H Albumin 4.1 Lipase 124 Urine Color Urine Clarity Urine pH Ur Specific [place] Urine Protein Urine Glucose (UA) Urine Ketones Urine Occult Blood Urine Nitrate Urine Bilirubin Urine Urobilinogen Ur Leukocyte Esterase Urine RBC Urine WBC Ur Squamous Epith Cells Urine Mucus Micro UA Comment Ur Microscopic Review Urine Culture Comments Chlam trachomat DNA PCR N.gonorrhoeae DNA (PCR) Blood Type O Positive Blood Type Recheck Required Antibody Screen Negative MTS Gel Crossmatch See Detail Bld Prod Order Comment 12/08/18 14:25 WBC RBC Hgb Hct MCV MCH MCHC RDW Plt Count MPV Prelim Diff (Auto) Neut % (Auto) Lymph % (Auto) [place] % (Auto) Eos % (Auto) Baso % (Auto) Neut # (Auto) Lymph # (Auto) [place] # (Auto) Eos # (Auto) Baso # (Auto) WBC Differential Diff Scan Seg Neuts % (Manual) Lymphocytes % (Manual) Monocytes % (Manual) Eosinophils % (Manual) Abs Neuts (Manual) Differential Comment Toxic Vacuolation Platelet Estimate Platelet Morphology Target Cells Tear Drop Cells Ovalocytes Helmet Cells Keratocytes Sodium Potassium Chloride Carbon Dioxide Anion Gap BUN Creatinine Estimated GFR Random Glucose Calcium Iron TIBC % Saturation Ferritin Total Bilirubin AST ALT Alkaline Phosphatase Total Protein Albumin Lipase Urine Color Yellow Urine Clarity Hazy H Urine pH 5.0 Ur Specific [place] 1.024 Urine Protein Negative Urine Glucose (UA) Negative Urine Ketones Negative Urine Occult Blood Negative Urine Nitrate Negative Urine Bilirubin Negative Urine Urobilinogen Less than 2 Ur Leukocyte Esterase Negative Urine RBC Less than 1 Urine WBC 1 Ur Squamous Epith Cells 5 Urine Mucus Few H Micro UA Comment Culture not ind Ur Microscopic Review Not Reportable Urine Culture Comments Culture not ind Chlam trachomat DNA PCR N.gonorrhoeae DNA (PCR) Blood Type Blood Type Recheck Antibody Screen MTS Gel Crossmatch Bld Prod Order Comment Impressions ITS Impressions Abdomen/Pelvis CT 12/08/18 13:51 CONCLUSION: 1. Multiple masses arising the pelvis I suspect are all large leiomyoma from the uterus. I do not see a normal or abnormal ovary. The rest of the study is unremarkable Pelvis Ultrasound 12/09/18 00:00 CONCLUSION: 1. Enlarged heterogeneous uterus containing multiple leiomyomas. 2. Pelvic pain. Correspond with endometrial leiomyoma measuring 3.2 x 1.7 x 1.5 cm. 3. Small moderate pelvic free fluid. Discharge Plan Discharge Disposition Patient Disposition: Discharge Home Discharge Condition Condition: Stable Discharge Order Discharge Orders: Discharge Order (Routine); Ordered 12/09/18 Ordered By: Ashley Frey Discharge Details Anticipated Discharge Date: 12/09/18 Physicians Team ED Provider: Luz Cross ED Midlevel Provider: Jacque Higuera Primary Care Provider: Primary Care Lisa Henley Attending Provider: Jono Feldman Other Providers: Leyda Dumont Rxs /Orders / Referrals /Forms Prescriptions: New ferrous sulfate 325 mg (65 mg iron) tablet 325 mg PO DAILY Qty: 30 RF: 0 Referrals: Sariah Washington MD [Physician] - See Instructions (Patient to follow up in 1 week.) Primary Care Lisa Henley [Primary Care Provider] - See Instructions (Follow up in 7 Days. Schedule an appointment. If you have no primary care provider/Doctor, referral to [facility] [phone] ([facility]) [phone] ([place]) Please call and schedule an appointment here to establish primary care if unable to find an in-network physician in the area - they may be able to utilize Medicaid benefit or will bill you at sliding scale based on income as self-pay. ) Discharge Instructions Patient Printed Instructions: Iron Supplements (By mouth), Uterine Fibroids ( GEN), Anemia (ED) Additional Instructions: Your Health Problems: ANEMIA Goals to Promote Your Health: * To prevent worsening of your condition * To maintain your health at the optimal level Directions to Meet Your Goals: * Take your medications as prescribed * Follow your dietary instruction * Follow activity as directed * Keep your appointments as scheduled * Take your immunizations and boosters as scheduled * If your symptoms worsen call your PCP * If no PCP go to Urgent Care or Emergency Room Smoking is dangerous to your health. Avoid second hand smoke. You may reach the 24-hour crisis hotline for domestic abuse at . Post Discharge Care Plan Care Plan Goals: Your Health Problems: ANEMIA Goals to Promote Your Health: * To prevent worsening of your condition * To maintain your health at the optimal level Directions to Meet Your Goals: * Take your medications as prescribed * Follow your dietary instruction * Follow activity as directed * Keep your appointments as scheduled * Take your immunizations and boosters as scheduled * If your symptoms worsen call your PCP * If no PCP go to Urgent Care or Emergency Room Smoking is dangerous to your health. Avoid second hand smoke. You may reach the 24-hour crisis hotline for domestic abuse at . Status ED Status: Left Department Discharge Information Discharge Date/Time: 12/09/18 12:16
--- NOTE | 2018-12-09 11:14 | P.OBGPN ---
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
[2018-12-09 11:47] VITALS: BP 100/64; PULSE 66; TEMP 98.5
== END 2018-12-09 12:16 | disposition home or self-care (01) ==
LOC: NEPB 12:15 → NEDH 12:15 → NEDA 18:30 → NEPFCDU 20:03
PROVIDERS: ADMIT Hospitalist; ATTEND Hospitalist
DX: Z80.0 Family history of malignant neoplasm of digestive organs; D50.9 Iron deficiency anemia, unspecified; R64 Cachexia; Z82.5 Family history of asthma and other chronic lower respiratory diseases; D25.9 Leiomyoma of uterus, unspecified; R19.00 Intra-abdominal and pelvic swelling, mass and lump, unspecified site; N76.0 Acute vaginitis; J45.909 Unspecified asthma, uncomplicated; N92.0 Excessive and frequent menstruation with regular cycle; Z86.19 Personal history of other infectious and parasitic diseases
CPT/HCPCS: 36430; 74177; 76856; 80053; 81001; 82728; 83540; 83550; 83690; 84703; 85025; 86850; 86900; 86901; 86923; 87491; 87591; 90774; 90784; 96361; 96372; 96374; 99285; C8952; G0378; J0696; J1885; J7030; P9016; Q9967